=== PATIENT | female | born 1995 | race Caucasian/White ===

== ENCOUNTER 2016-09-27 18:44 | Emergency (ER) | payer MEDICAID ==
[~2016-09-27] VITALS: Ht 152.4 cm; Wt 63.5 kg
[2016-09-27 19:06] VITALS: BP 133/69; PULSE 68; RESP 18; TEMP 98.3; O2SAT 98
--- NOTE | 2016-09-27 20:17 | NUR ---
Patient to ER bed H1 to gown for evaluation. Side rails up. Report given to Cand[place]
--- NOTE | 2016-09-27 20:24 | NUR ---
Pt transferred to room 05
[2016-09-27] MEDS ORDERED: KETOROLAC TROMETHAMINE 60 MG/2 ML VIAL IM ONE (20:30)
--- NOTE | 2016-09-27 20:31 | NUR ---
MICAH Lopez at bedside
--- NOTE | 2016-09-27 20:40 | NUR ---
Patient is in stable condition. Patient states that she is having chest pain radiating up her shoulder since today. Lungs are clear. Denies any shortness of breath, nausea, or vomiting. Pain 8/10. No other complaints/injuries per patient or as noted.
[2016-09-27] MEDS ORDERED: LORazepam 1 MG TABLET PO ONE (20:45)
[2016-09-27 21:10] VITALS: BP 133/69; PULSE 68; RESP 18; TEMP 98.3; O2SAT 98
--- NOTE | 2016-09-27 21:10 | NUR ---
Patient given written and verbal discharge instructions and verbalizes understanding. ER MD discussed with patient the results and treatment provided. Patient in stable condition. ID arm band removed. Rx of Mobic given. Patient educated on pain management and to follow up with PMD in 48 hours. Pain Scale 0/10 Opportunity for questions provided and answered.
== END 2016-09-27 21:10 | disposition home or self-care (01) ==
LOC: SED 18:44
DX: R07.89 Other chest pain (principal)
CPT/HCPCS: 71010; 81025; 93005; 96372; 99284; J1885

== ENCOUNTER 2017-07-26 15:44 | Emergency (ER) | payer MEDICAID ==
[~2017-07-26] VITALS: Ht 152.4 cm; Wt 60.8 kg
[2017-07-26 15:49] VITALS: BP_SYST 119
[2017-07-26] MEDS ORDERED: DEXAMETHASONE SOD PHOSPHATE 10 MG/ML VIAL IM ONE (16:15)
[2017-07-26] MEDS ORDERED: KETOROLAC TROMETHAMINE 60 MG/2 ML VIAL IM ONE (16:15)
[2017-07-26 16:30] LABS: STREPTOCOCCUS A SCREEN (RAPID) NEGATIVE (NEGATIVE)
[2017-07-26 16:41] LABS: BILIRUBIN,URINE NEGATIVE (NEGATIVE); BLOOD, URINE 2+ (NEGATIVE); CLARITY/URINE SL HAZY (CLEAR); COLOR,URINE YELLOW (YELLOW); GLUCOSE,URINE NEGATIVE (NEGATIVE); KETONES,URINE NEGATIVE (NEGATIVE); LEUKOCYTE ESTERASE ,URINE TRACE (NEGATIVE); NITRITE, URINE NEGATIVE (NEGATIVE); PROTEIN URINE NEGATIVE (NEGATIVE); UROBILINOGEN,URINE 0.2 (0.2-1.0)
[2017-07-26 16:48] LABS: INFLUENZA A&B ANTIGEN SCREEN NEGATIVE FOR A & B (NEGATIVE)
[2017-07-26 16:51] LABS: BACTERIA,URINE FEW /HPF (None Seen); MUCUS,URINE 2+ /LPF (None Seen)
[2017-07-26 17:20] VITALS: BP_SYST 119
== END 2017-07-26 17:20 | disposition home or self-care (01) ==
LOC: SED 15:44
DX: J02.8 Acute pharyngitis due to other specified organisms (principal); B97.89 Other viral agents as the cause of diseases classified elsewhere; N39.0 Urinary tract infection, site not specified
CPT/HCPCS: 36415; 81000; 81025; 86403; 86710; 87081; 87086; 96372; 99284; J1100; J1885